=== PATIENT | male | born 1940 | race Caucasian/White ===

== ENCOUNTER → 2018-04-10 | Outpatient (CLI) | payer OTHER ==
[~2018-04-10] MED LIST: LOSA50 PO; MULVITMINF PO; ONDA4 PO; ONDA8 PO; Omeprazole20 M1 PO; PROBIOTIC; SERT50 PO; TAMS.4ER PO; VITAMIN D
== END | disposition home or self-care (01) ==
LOC: LAB SHORT 09:55 → PLD 09:55
DX: C44.42 Squamous cell carcinoma of skin of scalp and neck (principal)
CPT/HCPCS: 88305

== ENCOUNTER → 2018-04-24 | Outpatient (CLI) | payer OTHER | LOC: LAB SHORT 08:19 → PLD 08:19 | DX: C44.42 Squamous cell carcinoma of skin of scalp and neck (principal) | CPT/HCPCS: 88305 ==

== ENCOUNTER → 2018-06-18 | Outpatient (CLI) | payer OTHER ==
[2018-06-19 12:14] LABS: Adenovirus F 40/41 Not Detected (NOT DETECT); Astrovirus Not Detected (NOT DETECT); Campylobacter Sp Not Detected (NOT DETECT); Cryptosporidium Not Detected (NOT DETECT); Cyclospora Cayetanensis Not Detected (NOT DETECT); E. Coli O157 Not Detected (NOT DETECT); Entamoeba Histolytica Not Detected (NOT DETECT); Enteroaggregative E. coli-EAEC Not Detected (NOT DETECT); Enteropathogenic E. coli-EPEC Not Detected (NOT DETECT); Enterotoxigenic E. coli-ETEC Not Detected (NOT DETECT); Giardia Lamblia Not Detected (NOT DETECT); Norovirus GI/GII Not Detected (NOT DETECT); Plesiomonas Shigelloides Not Detected (NOT DETECT); Rotavirus A Not Detected (NOT DETECT); Salmonella Sp Not Detected (NOT DETECT); Sapovirus Not Detected (NOT DETECT); Shiga Toxin-prod E. coli-STEC Not Detected (NOT DETECT); Shigella/Enteroin E. coli-EIEC Not Detected (NOT DETECT); Vibrio Cholerae Not Detected (NOT DETECT); Vibrio Sp Not Detected (NOT DETECT); Yersinia Enterocolitica Not Detected (NOT DETECT)
== END | disposition home or self-care (01) ==
LOC: LAB EV 21:00
PROVIDERS: Student in an Organized Health Care Education/Training Program
DX: R19.7 Diarrhea, unspecified (principal); R10.13 Epigastric pain; R14.0 Abdominal distension (gaseous)
CPT/HCPCS: 87507

== ENCOUNTER 2019-02-02 13:27 | Observation (INO) | payer OTHER ==
[~2019-02-02] VITALS: Ht 182.9 cm; Wt 69.7 kg
[~2019-02-02 13:27] MED LIST changes: +BUPR150ER PO; +VITAMIN D33000 UNIT PO
[2019-02-02] MEDS ORDERED: BUPR150ER PO (14:06)
[2019-02-02 14:10] LABS: BASOPHILS ABSOLUTE AUTO 0.06 K/mm3 (0.00-0.23); BASOPHILS PERCENT AUTO 1 % (0-2); EOSINOPHILS ABSOLUTE AUTO 0.05 K/mm3 (0.00-0.68); EOSINOPHILS PERCENT AUTO 1 % (0-6); Hematocrit 39.6 % (37.0-53.0); Hemoglobin 13.2 g/dL (13.5-17.5); IMMATURE GRAN ABSOLUTE AUTO 0.03 K/mm3 (0.00-0.10); IMMATURE GRAN PERCENT AUTO 0 % (0-1); LYMPHOCYTES ABSOLUTE AUTO 1.32 K/mm3 (0.84-5.20); LYMPHOCYTES PERCENT AUTO 15 % (21-46); MONOCYTES ABSOLUTE AUTO 0.78 K/mm3 (0.16-1.47); MONOCYTES PERCENT AUTO 9 % (4-13); Mean Corpuscular HGB 33.7 pg (26.0-34.0); Mean Corpuscular HGB Conc 33.3 g/dL (31.5-36.5); Mean Corpuscular Volume 101 fL (80-100); Mean Platelet Volume 9.2 fL (9.1-12.4); NEUTROPHILS ABSOLUTE AUTO 6.35 K/mm3 (1.96-9.15); NEUTROPHILS PERCENT AUTO 74 % (41-73); Platelet Count 270 K/mm3 (150-400); RDW Coefficient Variation 11.6 % (11.7-14.2); RDW Standard Deviation 42.6 fL (35.1-46.3); Red Blood Cell Count 3.92 M/mm3 (4.30-5.90); White Blood Cell Count 8.59 K/mm3 (4.00-11.30)
[2019-02-02 14:19] LABS: Alanine Aminotransfer (ALT/SGP 34 U/L (12-78); Albumin, Blood 3.9 g/dL (3.4-5.0); Albumin/Globulin Ratio 1.1 (0.8-1.8); Alk Phos 80 U/L (50-136); Anion Gap 6 mmol/L (6-16); Aspartate Aminotrans (AST/SGOT 39 U/L (12-37); Bilirubin, Total 0.6 mg/dL (0.1-1.0); Blood Urea Nitrogen 17 mg/dL (8-24); Bun/Creatinine Ratio 19.5 (12.0-20.0); CO2, Blood 28 mmol/L (21-32); Calcium, Blood 9.1 mg/dL (8.5-10.1); Chloride, Blood 101 mmol/L (98-108); Creatinine, Blood 0.87 mg/dL (0.60-1.20); Globulin, Blood 3.6 g/dL (2.2-4.0); Glomerular Filtration Rate >60 (60-); Glucose, Blood 95 mg/dL (70-99); Potassium, Blood 4.4 mmol/L (3.5-5.5); Sodium, Blood 135 mmol/L (136-145); Total Protein, Blood 7.5 g/dL (6.4-8.2)
[2019-02-02 14:30] LABS: International Normalized Ratio 1.02; Prothrombin Time Results 10.8 Sec (9.7-11.5)
[2019-02-02] MEDS ORDERED: THERA1 EACH PO (19:36)
[2019-02-02] MEDS ORDERED: PROBIOTIC1 EAC1 PO (19:36)
--- NOTE | 2019-02-03 06:35 | NUR ---
SHIFT SUMMARY PT ADMITTED FOR PNEUMOTHORAX. HEIMLICH CHEST TUBE WITH [address], NO SUCTION. 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 RIB FX VERY PAINFUL WITH MOVEMENT BUT HE DENIES NEED FOR PAIN MEDS AT REST. SATTING 99% ON RA, PT USED HIS IS FREQUENTLY OVERNIGHT. SMALL HEMATOMA TO RIGHT HEAD, PT DENIES DEY. DR. HA SAW HIM LAST NIGHT. PT IS A&O, ABLE TO MAKE NEEDS KNOWN. WILL CTM UNTIL PASS TO NEXT SHIFT.
--- NOTE | 2019-02-03 07:30 | NUR ---
ASSUMED CARE: PT RESTING QUIETLY AT THIS TIME. CHEST TUBE NOTED, NOT CONNECTED TO WATER OR WALL SUCTION. PT MEDICATED FOR PAIN BY NIGHT RN. NO FURTHER NEEDS OR CONCERNS AT THIS TIME.
--- NOTE | 2019-02-03 12:41 | NUR ---
DR HA REMOVED CHEST TUBE. LUNG SOUNDS APPEAR SAME AM ASSESSMENT. CREPITUS RIGHT RIBS BUT SAME THIS AM. PT AND INSTRUCTED TO CALL NURSING STAFF IF RESPIRATORY SYMPTOMS NOTED. PT INSTRUCTED ABOUT EFFECTIVE COUGHING AND BRACING WITH PILLOW AND TO NOT TRY TO HOLD IN A COUGH OR DEEP BREATH. DENIES FURTHER NEEDS AT THIS TIME
--- NOTE | 2019-02-03 14:48 | NUR ---
PT DENIES RESPIRATORY DISTRESS. CREPITUS APPEARS SAME PRIOR ASSESSMENTS. MORE AIR MOVEMENT NOTED BILATERAL LUNGS WITH CRACKLES NOTED ON RIGHT SIDE. PT DENIES RESPIRATORY DISTRESS AND IS ABLE TO CARRY A CONVERSATION WITH THE VISITOR IN HIS ROOM
[2019-02-03] MEDS ORDERED: Percocet 5-3251 EACH PO (17:01)
[2019-02-03] MEDS ORDERED: GAVILAX17 GM PO (17:01)
--- NOTE | 2019-02-03 17:40 | NUR ---
PT DC'D HOME. IV'S DC'D WNL. INSTRUCTIONS GIVEN ABOUT SYMPTOMS TO WATCH FOR AND FOLLOW UP APPOINTMENTS. PT WAS AMBULATORY UPON DISCHARGE. NO FURTHER CHANGES OR NEEDS NOTED
== END 2019-02-03 17:40 | disposition home or self-care (01) ==
LOC: ER 13:27 → ERHOLD 14:59 → SURS 14:59 → ER 14:59 → SURS 15:00 → ERHOLD 15:00 → SURS 19:26
PROVIDERS: Physician Assistant; ADMIT Surgery
DX: S27.0XXA Traumatic pneumothorax, initial encounter (principal); S22.41XA Multiple fractures of ribs, right side, initial encounter for closed fracture; S51.011A Laceration without foreign body of right elbow, initial encounter; S00.91XA Abrasion of unspecified part of head, initial encounter; Z91.011 Allergy to milk products; Z91.018 Allergy to other foods; Z79.899 Other long term (current) drug therapy; Z87.891 Personal history of nicotine dependence; W11.XXXA Fall on and from ladder, initial encounter
CPT/HCPCS: 32551; 36415; 71045; 71046; 80053; 85025; 85610; 86850; 86900; 86901; 93005; 93010; 94644; 96372; 96374; 99285-25; G0378; J1650; J2405

== ENCOUNTER → 2021-12-08 | Outpatient (CLI) | payer OTHER ==
[~2021-12-08] MED LIST changes: +Aspir 8181 MG PO; +GAVILAX17 GM PO; +PROBIOTIC1 EAC1 PO; +Percocet 5-3251 EACH PO; +THERA1 EACH PO
== END ==
LOC: LAB SHORT 11:22
DX: D48.5 Neoplasm of uncertain behavior of skin (principal); L57.0 Actinic keratosis; L57.8 Other skin changes due to chronic exposure to nonionizing radiation
CPT/HCPCS: 88305

== ENCOUNTER 2022-10-26 07:48 | Day surgery (SDC) | payer OTHER ==
[~2022-10-26] VITALS: Ht 182.9 cm; Wt 70.1 kg
--- NOTE | 2022-10-26 08:31 | NUR ---
10/26/22 0831 Joanna Dumont AT 0813 PLEDGET AT 0814
== END 2022-10-26 09:46 | disposition home or self-care (01) ==
LOC: ORSCSDS 07:48
PROVIDERS: Ophthalmology
PROC: 08DK3ZZ Extraction of Left Lens, Percutaneous Approach (ICD-10-PCS; principal; 2022-10-26 09:00)
DX: H25.13 Age-related nuclear cataract, bilateral (principal); I25.10 Atherosclerotic heart disease of native coronary artery without angina pectoris; I10 Essential (primary) hypertension; E78.00 Pure hypercholesterolemia, unspecified; F32.A Depression, unspecified; Z79.899 Other long term (current) drug therapy
CPT/HCPCS: J2001; J2250; J3301; J7040; V2632

== ENCOUNTER 2023-01-04 06:49 | Day surgery (SDC) | payer OTHER ==
[~2023-01-04] VITALS: Ht 182.9 cm; Wt 70.3 kg
[2023-01-04] MEDS ORDERED: TERB250 PO (07:12)
[2023-01-04] MEDS ORDERED: AMLODIPINE BES2.5 MG PO (07:13)
[2023-01-04] MEDS ORDERED: ATORVASTATIN CA20 MG (07:13)
--- NOTE | 2023-01-04 07:15 | NUR ---
01/04/23 0715 Joanna Dumont AT 0711 CARLAET AT 0713
== END 2023-01-04 08:33 | disposition home or self-care (01) ==
LOC: ORSCSDS 06:49
PROVIDERS: Ophthalmology
PROC: 08DJ3ZZ Extraction of Right Lens, Percutaneous Approach (ICD-10-PCS; principal; 2023-01-04 08:00)
DX: H25.11 Age-related nuclear cataract, right eye (principal); I20.9 Angina pectoris, unspecified; I10 Essential (primary) hypertension; E78.00 Pure hypercholesterolemia, unspecified; I47.9 Paroxysmal tachycardia, unspecified; F32.A Depression, unspecified; I71.9 Aortic aneurysm of unspecified site, without rupture; Z85.46 Personal history of malignant neoplasm of prostate; Z79.82 Long term (current) use of aspirin; Z79.899 Other long term (current) drug therapy
CPT/HCPCS: J2001; J2250; J3301; J7040; V2632

== ENCOUNTER 2023-03-06 14:02 | Inpatient (IN) | payer OTHER ==
[~2023-03-06] VITALS: Ht 180.3 cm; Wt 69.6 kg
[~2023-03-06 14:02] MED LIST changes: +AMLODIPINE BES2.5 MG PO; +ATORVASTATIN CA20 MG; +TERB250 PO
[2023-03-06 14:41] LABS: BASOPHILS ABSOLUTE AUTO 0.04 K/mm3 (0.00-0.23); BASOPHILS PERCENT AUTO 1 % (0-2); EOSINOPHILS ABSOLUTE AUTO 0.07 K/mm3 (0.00-0.68); EOSINOPHILS PERCENT AUTO 1 % (0-6); Hematocrit 36.5 % (37.0-53.0); Hemoglobin 12.7 g/dL (13.5-17.5); IMMATURE GRAN ABSOLUTE AUTO 0.01 K/mm3 (0.00-0.10); IMMATURE GRAN PERCENT AUTO 0 % (0-1); LYMPHOCYTES ABSOLUTE AUTO 1.29 K/mm3 (0.84-5.20); LYMPHOCYTES PERCENT AUTO 19 % (21-46); MONOCYTES ABSOLUTE AUTO 0.76 K/mm3 (0.16-1.47); MONOCYTES PERCENT AUTO 11 % (4-13); Mean Corpuscular HGB 34.1 pg (26.0-34.0); Mean Corpuscular HGB Conc 34.8 g/dL (31.5-36.5); Mean Corpuscular Volume 98 fL (80-100); Mean Platelet Volume 9.1 fL (9.1-12.4); NEUTROPHILS ABSOLUTE AUTO 4.48 K/mm3 (1.96-9.15); NEUTROPHILS PERCENT AUTO 67 % (41-73); Platelet Count 235 K/mm3 (150-400); RDW Coefficient Variation 11.6 % (11.7-14.2); Red Blood Cell Count 3.72 M/mm3 (4.30-5.90); White Blood Cell Count 6.65 K/mm3 (4.00-11.30)
[2023-03-06 15:04] LABS: International Normalized Ratio 1.06; Prothrombin Time Results 11.1 Sec (9.7-11.5)
[2023-03-06 15:13] LABS: Albumin, Blood 3.5 g/dL (3.4-5.0); Albumin/Globulin Ratio 1.1 (0.8-1.8); Bilirubin, Total 0.5 mg/dL (0.1-1.0); Bun/Creatinine Ratio 16.3 (12.0-20.0); Calcium, Blood 8.9 mg/dL (8.5-10.1); Creatinine, Blood 0.8 mg/dL (0.60-1.20); Globulin, Blood 3.3 g/dL (2.2-4.0); Total Protein, Blood 6.8 g/dL (6.4-8.2)
[2023-03-06] MEDS ORDERED: ATOR10 PO (21:24)
[2023-03-06 21:31] VITALS: BP 110/67
[2023-03-06 22:36] LABS: Magnesium, Blood 2.2 mg/dL (1.6-2.4); Thyroid Stimulating Hormone 2.28 uIU/mL (0.360-4.800)
[2023-03-07 04:50] VITALS: BP 105/58
--- NOTE | 2023-03-07 05:07 | NUR ---
Shift Summary Pt arrived to this unit from ED w/ dx of new onset AFIB. PT had chest pain while running and near syncope for 15 minutes. No further symptoms since then. On tele running Afib between 50-100. Multiple calls from telephone installer about near 3 second pauses and one call for bradycardia down to the 20s. Hospitalist notified, instructed to continue to monitor. Pt still remains asymptomatic, no chest pain or pressure, no dizzyness or light headedness. Pt slept well t/o most of the night. AOx4, independent in room, pleasant and cooperative.
[2023-03-07 07:09] VITALS: BP 109/64
[2023-03-07 11:42] VITALS: BP 108/59
--- NOTE | 2023-03-07 12:06 | NUR ---
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 CALLED , PT ASYMPTOMATIC AT THIS TIME. 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 CALLED WITH THE RESULTS OF THE EKKG, PT REMAINS ASYMPTOMATIC AT THIS TIME. RECIEVED AN ORDER FOR ATROPIENE AT BEDSIDE. SPOKE TO ASSISTANT ATHLETIC TRAINER THIS IS NOT A MED USED ON THIS UNIT PT WOULD REQUIRE TRANSFER TO PCU FOR THAT, MMD AWARE AND CANCELED THE ORDER. INSTRUCTED TO CALL A RAPID RESPONSE IF THE PT BECOMES SYMPTOMATIC.
[2023-03-07 15:58] VITALS: BP 119/63
[2023-03-07 19:20] VITALS: BP 130/75
--- NOTE | 2023-03-07 19:35 | NUR ---
SHIFT SUMMARY- PT ALERT, ORIENTED, AND INDEPENDENT IN THE ROOM. PT CONVERTED TO SINUS GARY IN THE 30'S-40'S THIS AFTERNOON, SEE PREVIOUS NOTES FOR DETAILS. PT IS ASYMPTOMATIC WITH THE GARY HRHE DID THE RESTING PORTION OF THE STRESS TEST TODAY ANND IS NO CAFFIENE NOW AND NPO EXCEPT FOR MEDS AND ICE CHIPS AFTER MIDNIGHT. PASSED ALL ON IN REPOR TO NIGHT FARBIA GARCIA IN BEDSIDE REPORT. PT IN BED, CALL LIGHT IN REACH NO S&S OF DISTRESS.
[2023-03-08 05:14] VITALS: BP 130/58
[2023-03-08 05:18] LABS: BASOPHILS ABSOLUTE AUTO 0.06 K/mm3 (0.00-0.23); BASOPHILS PERCENT AUTO 1 % (0-2); EOSINOPHILS ABSOLUTE AUTO 0.18 K/mm3 (0.00-0.68); EOSINOPHILS PERCENT AUTO 3 % (0-6); Hematocrit 36.2 % (37.0-53.0); Hemoglobin 12.2 g/dL (13.5-17.5); IMMATURE GRAN ABSOLUTE AUTO 0.02 K/mm3 (0.00-0.10); IMMATURE GRAN PERCENT AUTO 0 % (0-1); LYMPHOCYTES ABSOLUTE AUTO 2.06 K/mm3 (0.84-5.20); LYMPHOCYTES PERCENT AUTO 33 % (21-46); MONOCYTES ABSOLUTE AUTO 0.77 K/mm3 (0.16-1.47); MONOCYTES PERCENT AUTO 13 % (4-13); Mean Corpuscular HGB 33.7 pg (26.0-34.0); Mean Corpuscular HGB Conc 33.7 g/dL (31.5-36.5); Mean Corpuscular Volume 100 fL (80-100); Mean Platelet Volume 9.3 fL (9.1-12.4); NEUTROPHILS ABSOLUTE AUTO 3.09 K/mm3 (1.96-9.15); NEUTROPHILS PERCENT AUTO 50 % (41-73); Platelet Count 226 K/mm3 (150-400); RDW Coefficient Variation 11.8 % (11.7-14.2); RDW Standard Deviation 43.3 fL (35.1-46.3); Red Blood Cell Count 3.62 M/mm3 (4.30-5.90); White Blood Cell Count 6.18 K/mm3 (4.00-11.30)
[2023-03-08 05:46] LABS: Bun/Creatinine Ratio 16.8 (12.0-20.0); Calcium, Blood 8.6 mg/dL (8.5-10.1); Creatinine, Blood 0.95 mg/dL (0.60-1.20); Potassium, Blood 4.5 mmol/L (3.5-5.5)
[2023-03-08 07:35] VITALS: BP 133/57
--- NOTE | 2023-03-08 07:41 | NUR ---
Shift Summary Pt due for stress test today, no caffine after 1999 last night and was NPO except for water after 0000. I recieved one call from telemetry about a 2.2s pause and they told me he had a few smaller 1s pauses. This is an improvement from last night, pt asymptomatic. Slept well t/o the night. On tele running sinus ana all night.
--- NOTE | 2023-03-08 07:45 | NUR ---
ASSUMED CARE OF PT- BBEEDSIDE REPORT COMPLETED WITH NIGHT RN. PT AMBULATING INDEPENDENTLY IN THE ROOM BRUSHING HIS TEETH. INSTRUCTED PT TO CALL FOR ANY SYMPTOMS, CP, SOB, NUMBNESS, DIZZIENESS. PPT IS AWARE AND CALLS APPPROPRIATELY. IV FLUSHES WELL. TELE IN PLACE SINUS GARY AT 42. WILL CTM.
[2023-03-08 09:52] VITALS: BP 126/65
--- NOTE | 2023-03-08 12:17 | NUR ---
1145 ASSUMED CARE OF PATIENT. PATIENT SITTING IN A CHAIR READING MAGAZINE, DENIES ANY PAIN OR SOB. PT AWARE OF UPCOMING STRESS TEST
--- NOTE | 2023-03-08 12:19 | NUR ---
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
--- NOTE | 2023-03-08 14:50 | NUR ---
STRESS TEST COMPLETED, PT DENIES ANY PAIN, SOB . PT EATING LUNCH. REPORT GIVEN TO JAVI JIMENEZ RN
[2023-03-08 19:29] VITALS: BP 151/71
--- NOTE | 2023-03-08 20:16 | NUR ---
SHIFT SUMMARY- PT ALERT, ORIENTED AND INDEPENDENT IN THE ROOM. PT HR RUNNING 39-45 ON TELE NSR. PT HAS BEEN ASYMPTOMATIC WITH THIS. CARDIAC STRESS TEST COMPLETED TODAY. DR PRICE CAME TO SEE THE PT, THE PLAN IS TO PLACE A PACER ON MONDAY. XERALTO DC'D PER DR PRICE AND IV HEPARIN DRIP (PHARMACY CONSULT) ORDERED TO START AT 0900 TOMORROW MORNING. PT IS AWARE OF THE PLAN. NIGHT RN AWARE OF THE PLAN WELL. NEW STANDING WEIGHT IS NEEDED FOR THE PHARMACY, NIGHT RN ALSO AWARE.
[2023-03-09 02:37] VITALS: BP 111/55
[2023-03-09 04:26] LABS: BASOPHILS ABSOLUTE AUTO 0.07 K/mm3 (0.00-0.23); BASOPHILS PERCENT AUTO 1 % (0-2); EOSINOPHILS ABSOLUTE AUTO 0.14 K/mm3 (0.00-0.68); EOSINOPHILS PERCENT AUTO 2 % (0-6); Hematocrit 35.3 % (37.0-53.0); Hemoglobin 12.4 g/dL (13.5-17.5); IMMATURE GRAN ABSOLUTE AUTO 0.01 K/mm3 (0.00-0.10); IMMATURE GRAN PERCENT AUTO 0 % (0-1); LYMPHOCYTES ABSOLUTE AUTO 1.88 K/mm3 (0.84-5.20); LYMPHOCYTES PERCENT AUTO 27 % (21-46); MONOCYTES ABSOLUTE AUTO 0.83 K/mm3 (0.16-1.47); MONOCYTES PERCENT AUTO 12 % (4-13); Mean Corpuscular HGB 34.7 pg (26.0-34.0); Mean Corpuscular HGB Conc 35.1 g/dL (31.5-36.5); Mean Corpuscular Volume 99 fL (80-100); Mean Platelet Volume 9.1 fL (9.1-12.4); NEUTROPHILS ABSOLUTE AUTO 4.15 K/mm3 (1.96-9.15); NEUTROPHILS PERCENT AUTO 59 % (41-73); Platelet Count 218 K/mm3 (150-400); RDW Coefficient Variation 11.6 % (11.7-14.2); RDW Standard Deviation 42.5 fL (35.1-46.3); Red Blood Cell Count 3.57 M/mm3 (4.30-5.90); White Blood Cell Count 7.08 K/mm3 (4.00-11.30)
[2023-03-09 05:46] LABS: Anion Gap Unable to Calculate mmol/L (6-16); Blood Urea Nitrogen 17 mg/dL (8-24); Bun/Creatinine Ratio 17.5 (12.0-20.0); CO2, Blood 31 mmol/L (21-32); Calcium, Blood 8.4 mg/dL (8.5-10.1); Chloride, Blood 105 mmol/L (98-108); Creatinine, Blood 0.97 mg/dL (0.60-1.20); Glomerular Filtration Rate 78 (60-); Glucose, Blood 89 mg/dL (70-99); Potassium, Blood 4.2 mmol/L (3.5-5.5); Sodium, Blood 135 mmol/L (136-145)
--- NOTE | 2023-03-09 06:05 | NUR ---
SHIFT SUMMARY NOC PT A/O X 4. PLEASANT AND COOPERATIVE WITH CARE. PT ON TELE RUNNING SINUS RHYTHM 39-45. PT DROPPED TO 36-37 BPM FOR A FEW BEATS 3 TIMES DURING SHIFT. PT WAS ASYMPTOMATIC. PT BEGINS HEPARIN DRIP 2 00 TO PREPARE FOR PACEMAKER PLACEMENT ON MONDAY. PT WILL BE NPO OF 03/10/23. PT IS CURRENTLY RESTING WITH BED IN LOWEST POSITION, AND CALL LIGHT WITHIN REACH.
[2023-03-09 08:00] VITALS: BP 133/66
[2023-03-09 15:37] VITALS: BP 152/76
--- NOTE | 2023-03-09 18:35 | NUR ---
SHIFT SUMMARY- NO ACUTE EVENTS THIS SHIFT. PT APPROPRIATE. CALM AND COOPERATIVE. INDEPENDENT.
[2023-03-09 20:34] VITALS: BP 116/59
[2023-03-10] VITALS (9 sets, daily range): BP systolic 118–166; BP diastolic 65–105
[2023-03-10 04:41] LABS: BASOPHILS ABSOLUTE AUTO 0.08 K/mm3 (0.00-0.23); BASOPHILS PERCENT AUTO 1 % (0-2); EOSINOPHILS ABSOLUTE AUTO 0.18 K/mm3 (0.00-0.68); EOSINOPHILS PERCENT AUTO 2 % (0-6); Hematocrit 36.4 % (37.0-53.0); Hemoglobin 12.6 g/dL (13.5-17.5); IMMATURE GRAN ABSOLUTE AUTO 0.02 K/mm3 (0.00-0.10); IMMATURE GRAN PERCENT AUTO 0 % (0-1); LYMPHOCYTES ABSOLUTE AUTO 1.83 K/mm3 (0.84-5.20); LYMPHOCYTES PERCENT AUTO 23 % (21-46); MONOCYTES ABSOLUTE AUTO 0.88 K/mm3 (0.16-1.47); MONOCYTES PERCENT AUTO 11 % (4-13); Mean Corpuscular HGB 33.9 pg (26.0-34.0); Mean Corpuscular HGB Conc 34.6 g/dL (31.5-36.5); Mean Corpuscular Volume 98 fL (80-100); NEUTROPHILS ABSOLUTE AUTO 4.83 K/mm3 (1.96-9.15); NEUTROPHILS PERCENT AUTO 62 % (41-73); Platelet Count 226 K/mm3 (150-400); RDW Coefficient Variation 11.8 % (11.7-14.2); RDW Standard Deviation 42.1 fL (35.1-46.3); Red Blood Cell Count 3.72 M/mm3 (4.30-5.90); White Blood Cell Count 7.82 K/mm3 (4.00-11.30)
[2023-03-10 04:58] LABS: Bun/Creatinine Ratio 16.2 (12.0-20.0); Calcium, Blood 8.6 mg/dL (8.5-10.1); Creatinine, Blood 0.93 mg/dL (0.60-1.20); Potassium, Blood 3.7 mmol/L (3.5-5.5)
--- NOTE | 2023-03-10 06:02 | NUR ---
JANA HAD A QUIET NIGHT. NO CHANGES IN HEPARIN DOSINE, NO COMPLAINTS OF WEAKNESS OR DIZZINESS. PATIENT HAS BEEN RUNNING SINUS GARY IN THE LOW 40'S ALL NIGHT. UNSURE OF THE TIME OF HIS PACEMAKER PLACEMENT, THEREFORE PATIENT HAS BEEN NPO EXCEPT SIPS SINCE 2400. WILL ASK DAY RN TO SEE IF PERHAPS PATIENT CAN HAVE A CLEAR BREAKFAST IF HE WILL NOT BE GOING IN UNTIL LATER.
--- NOTE | 2023-03-10 15:06 | NUR ---
Patient is AOx4, independent in the room. NPO this morning, plan is to have pacemaker placed. Heparin infusion stopped on previous shift, monitoing coagulation labs. This morning Apical pulse 43, notified , instructed to give AM BP meds. Cardiology at bedside, plan is for surgery at 11am. Patient left for surgery & transfered to PCU post-op.
--- NOTE | 2023-03-10 15:26 | NUR ---
Pt after arrival post pacer placement was given food from pantry; 1/2 turkey sandwich, yogurt, fruit, salad, cheese stick, chicken noodle soup and black coffee. It was unknown by staff at the time that he was gluten and dairy intolerant. He ate everything except 1/2 the yogurt and cheese stick. He thought, he said later, that the bread was gluten free, but he knew that he was taking a chance by eating the dairy products. At this time he has no adverse side effects, but says that he gets abdominal discomfort, loose stools and generally doesn't feel good after eating dairy/wheat.
--- NOTE | 2023-03-10 18:11 | NUR ---
Pt is sitting up in chair, eating dinner. Ambulatory to the bathroom earlier with new car salesperson assisting. Denied lightheadedness/dizzyness with the activity. Nearly 100% paced noted on stained glass glazier helper. Left chest wall surgical site is clean, dry, and intact. Pt states that he is only having minimal pain at the site. Ice pack remains in place; it was refreshed. He denies any abdominal discomfort/GI upset. Appears to have good appetite.
[2023-03-11 04:00] VITALS: BP 155/98
--- NOTE | 2023-03-11 04:46 | NUR ---
SHIFT SUMMARY: PT HAS HAD NO ACUTE CHANGES DURING THIS SHIFT. A&OX4. DENIES ANY SOB OR FEELINGS OF CHEST PRESSURE. COMPLAINS OF PAIN AT INCISION SITE ON LEFT CHEST AND SHOULDER AREA FROM PACEMAKER PLACEMENT. MEDICATED WITH TYLENOL WITH GOOD EFFECT. PT REPORTS PRIMARY DIFFICULTY WITH PAIN IS HOW CONSTANT IT IS. UP AMBULATING IN ROOM WITH STEADY GAIT, DENIES DIZZIENESS/LIGHTHEADEDNESS. VOIDING CLEAR/YELLOW URINE WITHOUT DIFFICULTY. DRESSING ON LEFT CHEST IS C/D/I, SCANT OLD SHADOWING NOTED. HR IS PACED AT 60 BPM. O2 SATS > 92% ON RA. CALL LIGHT IN REACH, BED ALARM ON.
[2023-03-11 07:28] VITALS: BP 147/93
[2023-03-11] MEDS ORDERED: METO25ER PO (10:21)
[2023-03-11] MEDS ORDERED: CEPH500 PO (10:25)
--- NOTE | 2023-03-11 11:25 | NUR ---
pt discharged home with . sling in place to left arm and patient and spouse verbalize understanding of pacemaker precautions. pt ambulating in room. nick po food and fluids, voiding clear yellow urine. dressing dry and intact to left chest. pt reports adequate pain control. pacemaker interrogation completed prior to discharge
== END 2023-03-11 11:29 | disposition home or self-care (01) | DRG 243 ==
LOC: ER 14:02 → MEDS 14:03 → PCU 03-10 13:25
PROVIDERS: Internal Medicine; Internal Medicine Cardiovascular Disease; Nurse Practitioner Acute Care; Physician Assistant; ADMIT Internal Medicine
PROC: 0JH606Z Insertion of Pacemaker, Dual Chamber into Chest Subcutaneous Tissue and Fascia, Open Approach (ICD-10-PCS; principal; 2023-03-10)
PROC: 02H63JZ Insertion of Pacemaker Lead into Right Atrium, Percutaneous Approach (ICD-10-PCS; 2023-03-10)
PROC: 02HK3JZ Insertion of Pacemaker Lead into Right Ventricle, Percutaneous Approach (ICD-10-PCS; 2023-03-10)
DX: I48.0 Paroxysmal atrial fibrillation (principal); Q25.43 Congenital aneurysm of aorta; I49.5 Sick sinus syndrome; I10 Essential (primary) hypertension; E78.5 Hyperlipidemia, unspecified; F32.A Depression, unspecified; I71.21 Aneurysm of the ascending aorta, without rupture; K21.9 Gastro-esophageal reflux disease without esophagitis; R94.31 Abnormal electrocardiogram [ECG] [EKG]; D64.9 Anemia, unspecified; Z98.890 Other specified postprocedural states; Z85.46 Personal history of malignant neoplasm of prostate; Z87.891 Personal history of nicotine dependence; Z86.79 Personal history of other diseases of the circulatory system; Z91.018 Allergy to other foods; Z91.011 Allergy to milk products; Z91.048 Other nonmedicinal substance allergy status; Z79.899 Other long term (current) drug therapy; Z79.82 Long term (current) use of aspirin; Z79.02 Long term (current) use of antithrombotics/antiplatelets
CPT/HCPCS: 33208; 36415; 71045; 71046; 71275; 76937; 78452; 80048; 80053; 83690; 83735; 84443; 84484; 85025; 85610; 85730; 93005; 93010; 93017; 93306; 99152; 99153; 99285-25; A9270; A9500; C1781; C1785; C1894; C1898; G0378; J0690; J1644; J2250; J2785; J3010; J7030; J7040; Q9967